=== PATIENT | female | born 1985 | race Caucasian/White ===

== ENCOUNTER 2019-05-05 05:27 | Day surgery (SDC) | payer OTHER ==
[2019-05-01 14:58] LABS: EOSINOPHILS 2.1 % (0-7); HEMATOCRIT 40.8 % (36.0-48.0); HEMOGLOBIN 13.4 g/dL (12-16); IMMATURE GRANULOCYTES 0.2 % (0-5); LYMPHOCYTES 31.5 % (15-50); MCH 30.5 pg (26.0-34.0); MCHC 32.8 g/dL (31.0-37.0); MCV 92.9 fL (80.0-100.0); MEAN PLATELET VOLUME 9.8 fL (7.4-10.4); MONOCYTES 6.9 % (2-11); NEUTROPHILS 58.3 % (40-80); PLATELET COUNT 262 10x3/uL (130-400); RBC 4.39 10x6/uL (4.00-5.40); RDW 13.9 % (11.5-14.5); WBC 8.9 10x3/uL (4.8-10.8)
[2019-05-01 15:06] LABS: CALC OSMOLALITY 273 mosm/kg (275-300); CALCIUM 8.8 mg/dL (8.5-10.1); CHLORIDE - SERUM 103 mmol/L (98-107); CREATININE - SERUM 0.6 mg/dL (0.6-1.3); GLUCOSE 78 mg/dL (74-106); POTASSIUM - SERUM 4.4 mmol/L (3.5-5.1); SODIUM 138 mmol/L (136-145); UREA NITROGEN 10 mg/dL (7-18); eGFR NON AFRICAN AMERICAN > 90 mL/min (90-120)
[~2019-05-05] VITALS: Ht 165.1 cm; Wt 63.5 kg
[~2019-05-05 05:27] MED LIST: MICROGESTIN FE1 EACH PO
[2019-05-05 06:14] VITALS: BP 114/70; Ht 165.1 cm; Wt 63.5 kg
[2019-05-05 06:28] LABS: HCG URINE NEGATIVE (NEGATIVE)
[2019-05-05 10:33] VITALS: BP 110/75
--- NOTE | 2019-05-05 11:00 | NUR ---
PT HERE FROM PACU. VSS AND WNL. COMPLAINS OF PAIN TO ABD. PRN OXYCODONE GIVEN ORDERED. PT COMPLAINING THAT HER SERNA IS IRRITATING HER. SERNA CATHETER REMOVED WITH TIP INTACT. ASISSTED PT TO BATHROOM PER PT REQUEST, PT NOT ABLE TO URINATE. ASSISTED PT BACK TO BED, PIV TO PT RIGHT HAND INFILTRATED. PIV REMOVED WITH CATHETER TIP INTACT. WILL CONT TO FOLLOW POC
--- NOTE | 2019-05-05 11:26 | OP ---
PATIENT NAME: BRENT OCONNOR I MEDICAL RECORD: [id number] :85 LOCATION:D.M3 D.1204 ADMISSION DATE: SURGEON: ANUPAM VARELA MD DATE OF OPERATION: 05/05/2019 PREOPERATIVE DIAGNOSES: 1. Dysfunctional uterine bleeding. 2. Pelvic pain. 3. First degree uterine prolapse. POSTOPERATIVE DIAGNOSES: 1. Dysfunctional uterine bleeding. 2. Pelvic pain. 3. First degree uterine prolapse. 4. Endometriosis. PROCEDURES: 1. Diagnostic laparoscopy. 2. Total laparoscopic hysterectomy. 3. Bilateral salpingo-oophorectomy. 4. Modified Herman's culdoplasty. SURGEON: Anupam Varela MD RETREAD MOLD OPERATOR: Dr. Urena. REDEYE GUNNER: Ms. Neff. ANESTHESIOLOGIST: Satya. ANESTHETIC: General. FINDINGS: Uterus is slightly enlarged and boggy. Active endometriosis is found on the peritoneum of the uterus and also in the cul-de-sac overlying rectum. The ovaries were unremarkable and what was visualized of the abdominal anatomy was also unremarkable. SPECIMENS: 1. Uterus. 2. Bilateral tubes. SPECIMEN DISPOSITION: Pathology. ESTIMATED BLOOD LOSS: Less than or equal to 200 cc. FLUIDS: 1 liter of lactated Ringer's. URINE OUTPUT: 200 cc of clear urine. COMPLICATIONS: None. DRAINS: Baptiste to gravity. INDICATIONS: The patient is a 34-year-old female with no future fertility desires. The patient has reported dyspareunia and pelvic pain, longstanding OPERATIVE REPORT [id number] BRENT OCONNOR I since last delivery. The patient also has regular heavy periods that interfere with quality of life. The patient is consented for laparoscopic hysterectomy with bilateral salpingectomy and any indicated procedure. DESCRIPTION OF PROCEDURE: After informed consent was assured, the patient was taken to the operating room where anesthetic was obtained. The patient was examined under anesthesia and found to have first degree uterine prolapse. The patient was prepped and draped and a uterine manipulator placed. Attention was directed to the abdomen where an incision was made and a trocar inserted. Pneumoperitoneum was developed and the patient was placed in Trendelenburg. Accessory ports were placed in the right and left lower quadrants. The right tube was elevated and using Thunderbeat coagulation cutter, the tissues were compressed, coagulated, and until the tube was free of its attachments to the adnexa. The dissection was carried out over the uterine ovarian ligaments and round ligaments. The anterior leaf of the broad ligament was opened and the bladder flap developed to the midline. The posterior leaf was opened and the vessels of the right side identified compressed, coagulated. Attention was now directed to the left side. With the left tube now elevated from the right, the coagulation cutter was used to free the tube from its attachments to the adnexa. The dissection was carried out over the uteroovarian and round ligaments. The anterior leaf of the broad ligament was opened and the bladder flap now developed in the midline. The posterior leaf was opened and the vessels of the left side, compressed, coagulated, and . Dissection of the cuff begins from the left and concludes on the right. A monopolar hook was used with a setting of 20 gonzalez to free the attachment of the uterus to the vaginal cuff. This starts at the 12 and concludes at 6 and then it is continued from the 12-6 on the right side. The Thunderbeat coagulation cutter was used to remove the attachments of the uterus to the cuff on the right. Uterus is pulled into the vault and pneumoperitoneum was established and the cuff inspected. The uterus was now removed and the gas turned off. The legs were positioned and the vaginal cuff closed. Some bleeding was occurred from both right and left corners of the cuff and these were transfixed with a [id number] Vicryl on a CT-2 needle. The stitch is now placed from the posterior cuff and through the posterior peritoneum to the left uterosacral ligament across the peritoneum in the cul-de-sac through the right uterosacral ligament and out into the vaginal vault. This was tagged with a hemostat to be tied later in the case. The cuff was now closed in anterior to posterior fashion with interrupted stitches. Once the cuff was completely closed, the modified Herman's is tied securing the apex of the vagina to the shortened uterosacral ligaments. The sponge, lap and needle count was correct as the pneumoperitoneum was reestablished and the pelvis inspected. The water was used as an irrigant and small vessels were identified on the bladder wall. These are the grasped, elevated, and coagulated with the Thunderbeat. After the irrigant was removed, the pneumoperitoneum was released and the trocars were removed. Cystoscopy was now performed. Using water as a distention media, a 72-degree scope was passed under direct visualization through the urethra and into the bladder. Clear urine was noted to efflux from both right and left ureters and the bladder dome is intact. The distention media was now released and Baptiste catheter restarted. The subcuticular stitch was used to reapproximate the skin incisions and sterile dressing was applied. Sponge, lap, and needle counts correct times 2 at the close of this procedure. TRANSINT:[id number] Voice Confirmation ID: [id number] DOCUMENT ID: [id number] OPERATIVE REPORT [id number] BRENT OCONNOR,ANUPAM Epstein MD at 1126 CC: [id number] DICTATION DATE: 05/05/19 0943 COCOA MILLING MACHINE OPERATOR: 05/05/19 1024 [address] [facility] [address] [place] [address]
--- NOTE | 2019-05-05 12:20 | NUR ---
PT ABLE TO VOID 100ML OF URINE
--- NOTE | 2019-05-05 12:30 | NUR ---
PT ATE 4 CRACKERS AND DRANK ONE CUP OF JUICE
--- NOTE | 2019-05-05 13:56 | NUR ---
DISCHARGE INSTRUCTIONS REVIEWED WITH PT AND ALL QUESTIONS ANSWERED. PT ASSISTED TO FRONT OF HOSPITAL VIA WHEELCHAIR WHERE SHE LEFT WITH SPOUSE
== END 2019-05-05 13:57 | disposition home or self-care (01) ==
LOC: D.OPS 05:27 → D.M3 09:52 → D.PAN 10:00 → D.OPS 10:00
PROVIDERS: ATTEND Obstetrics & Gynecology
DX: N93.8 Other specified abnormal uterine and vaginal bleeding (principal); N80.3 Endometriosis of pelvic peritoneum; N85.2 Hypertrophy of uterus; Z01.812 Encounter for preprocedural laboratory examination